=== PATIENT | male | born 1945 | race Caucasian/White ===

== ENCOUNTER 2018-04-30 21:30 | Emergency (ER) | payer MEDICARE ==
[2018-04-30] MEDS ORDERED: NS 0.9% 1000 ML* 1,000 ML IV ONE (21:51)
[2018-04-30] MEDS ORDERED: Ondansetron INJ* 2 MG/ML VIAL IV ONE (21:52)
[2018-04-30] MEDS ORDERED: Aspirin 81 mg CHEW TAB* 81 MG TAB.CHEW PO ONE (21:52)
[2018-04-30] MEDS ORDERED: Meclizine TAB* 12.5 MG PO ONE (22:00)
[2018-04-30] MEDS ORDERED: diPHENhydraMINE IV* 50 MG/ML 1 ml VIAL (BENADRYL) IV ONE (22:00)
--- NOTE | 2018-04-30 22:05 | ED ---
Dizziness - HPI Summary HPI Summary: This is Souleymane richter documenting for attending physician Luis Ferraro MD. This patient is a 72 year old M BIBA to [facility] accompanied by his with a chief complaint of dizziness since 2099. Pt states he laid down and became dizzy. He describes it as the room spinning and that it was spinning clockwise. The patient rates the pain 0/10 in severity. Symptoms aggravated by change in position. Symptoms alleviated by closing his eyes and staying still. Patient reports ABD pain, mild CP, n/v, and diaphoresis. Patient denies recent head injury. Pt is from out of town and has extensive cardiac history. - History Of Current Complaint Chief Complaint: EDDizziness Stated Complaint: VOMITING/DIZZY Time Seen by Provider: 04/30/18 21:50 Hx Obtained From: Patient Onset/Duration: Still Present Timing: Constant Severity Initially: Severe Severity Currently: Severe Character: Room Spinning, Dizzy Aggravating Factor(s): Position Change Alleviating Factor(s): Lying Down, Closing Eyes Associated Signs And Symptoms: Positive: Negative - head injury, Other: - ABD pain, mild CP, n/v, and diaphoresis - Allergies/Home Medications Allergies/Adverse Reactions: Allergies Allergy/AdvReac Type Severity Reaction Status Date / Time latex AdvReac Hives Verified 04/30/18 22:01 Home Medications: Home Medications Acetaminophen TAB* [Tylenol TAB*] 650 mg PO Q4H PRN 04/30/18 [History Confirmed 04/30/18] Aspirin [Aspirin EC] 81 mg PO DAILY 04/30/18 [History Confirmed 04/30/18] Cyproheptadine TAB* [Periactin TAB*] 4 mg PO DAILY PRN 04/30/18 [History Confirmed 04/30/18] Furosemide TAB* [Lasix TAB*] 40 mg PO DAILY 04/30/18 [History Confirmed 04/30/18 ] Losartan Potassium 12.5 mg PO DAILY 04/30/18 [History Confirmed 04/30/18] Metoprolol Succinate 25 mg PO BID 04/30/18 [History Confirmed 04/30/18] Multivit-Min/FA/Lycopen/Lutein [Centrum Silver Men Tablet] 1 each PO DAILY 04/30 [History Confirmed 04/30/18] Omeprazole CAP* [Prilosec CAP* 20 MG] 20 mg PO DAILY 04/30/18 [History Confirmed 04/30/18] Oxybutynin TAB* [Ditropan TAB*] 5 mg PO DAILY 04/30/18 [History Confirmed ] Polyethylene Glycol 3350* [Miralax*] 17 gm PO DAILY PRN 04/30/18 [History Confirmed 04/30/18] Sertraline* [Zoloft*] 50 mg PO DAILY 04/30/18 [History Confirmed 04/30/18] Spironolactone TAB* [Aldactone TAB 25 MG*] 12.5 mg PO DAILY 04/30/18 [History Confirmed 04/30/18] Tamsulosin CAP* [Flomax CAP*] 0.4 mg PO DAILY 04/30/18 [History Confirmed ] Warfarin TAB(*) [Coumadin TAB(*)] 5 mg PO SEE INSTRUCTIONS 04/30/18 [History Confirmed 04/30/18] PMH/Surg Hx/FS Hx/Imm Hx Cardiovascular History: Reports: Hx Atrial Fibrillation, Hx Congestive Heart Failure, Other Cardiovascular Problems/Disorders - pacer Respiratory History: Denies: Hx Chronic Bronchitis, Hx Chronic Obstructive Pulmonary Disease (COPD ) Infectious Disease History: No Infectious Disease History: Denies: Traveled Outside the [place] in Last 30 Days - Family History Known Family History: Positive: Cardiac Disease - Social History Alcohol Use: Rare Substance Use Type: Reports: None Smoking Status (MU): Never Smoked Tobacco Review of Systems Positive: Skin Diaphoresis Positive: Chest Pain Positive: Abdominal Pain, Vomiting, Nausea Musculoskeletal: Negative - recent head injury Neurological: Other - dizziness All Other Systems Reviewed And Are Negative: Yes Physical Exam - Summary Physical Exam Summary: Appearance: Well appearing, no pain distress Skin: warm, dry, reflects adequate perfusion, there is a sternotomy scar. There is also a scar on the left ankle. Head/face: normal Eyes: EOMI, GUDELIA ENT: normal Neck: supple, non-tender Respiratory: CTA, breath sounds present Cardiovascular: RRR, pulses symmetrical Abdomen: non-tender, soft Bowel Sounds: present Musculoskeletal: normal, strength/ROM intact Neuro: sensory motor intact, A&Ox3. Change in position induces nystagmus and nausea, positive hallpike test GCS: 15 Triage Information Reviewed: Yes Vital Signs On Initial Exam: Initial Vitals Temp Pulse Resp BP Pulse Ox 97.1 F 65 18 161/62 100 04/30/18 21:34 04/30/18 21:34 04/30/18 21:34 04/30/18 21:34 04/30/18 21:34 Vital Signs Reviewed: Yes Diagnostics - Vital Signs Vital Signs Temp Pulse Resp BP Pulse Ox 04/30/18 21:34 97.1 F 65 18 161/62 100 - Laboratory Result Diagrams: 04/30/18 22:07 04/30/18 23:20 Lab Statement: Any lab studies that have been ordered have been reviewed, and results considered in the medical decision making process. - Radiology CXR Radiology Interpretation Completed By: ED Physician - no acute findings, pending official report. - CT CT Brain CT Interpretation Completed By: Radiologist - No acute findings. Dr. Ferraro has reviewed this report. - EKG 2141 Cardiac Rate: Other Rate EKG Rhythm: Sinus Rhythm - ventriculary paced at 64 BPM EKG Interpretation: wide complex, possible st elevations in v2/v3, no st depressions EKG Comparison: Other - No Prior to compare to Re-Evaluation - Re-Evaluation First Eval Re-Evaluation Time: 23:38 Change: Improved Comment: Pt is feeling better, dizziness has resolved. Dizzy Course/Dx - Course Course Of Treatment: Patient with abrupt onset of rotational dizziness with change of position. No recent URI symptoms. Vomiting associated with this. CT of the brain, laboratories are likely at baseline. Patient does have a history of chronic renal insufficiency. He does have a extensive cardiac history but nothing today points to a cardiac etiology. He is neurologically intact. Following treatment he is able to get up, change positions and walk without issue. He is discharged to follow up with his primary care physician on return to [place]. He is also given care connections follow-up here in case he needs something further while still in the area. - Diagnoses Differential Diagnosis/HQI/PQRI: Other - Stroke, TIA, labyrinthitis, hypovolemia , cardiac event, vertigo, intracranial hemorrhage Provider Diagnoses: BPPV (benign paroxysmal positional vertigo) Discharge - Sign-Out/Discharge Documenting (check all that apply): Patient Departure - Discharge Plan Condition: Improved Disposition: HOME Prescriptions: Meclizine HCl [Dramamine Less Drowsy] 25 mg PO TID PRN #30 tablet PRN Reason: Dizziness Patient Education Materials: Vertigo (ED) Referrals: [facility] [Outside] Additional Instructions: [facility] can provide follow-up for U while you're here in town. Follow up with her family doctor promptly and return to [place]. Drink lots of fluids. Watch the video online for Eply maneuvers. These can resolve symptoms of vertigo. Do not drive until you're well. Return if worse, severe headache, numbness/weakness, worse or other concerns as discussed. - Billing Disposition and Condition Condition: IMPROVED Disposition: Home Attestation Statement Scribe Attestation: This is Souleymane richter documenting for attending physician Luis Ferraro MD. User Type: Provider with [employer] Provider Attestation: The documentation recorded by the scribe accurately reflects the service I personally performed and the decisions made by me.
[2018-04-30 22:15] LABS: ABS Basophils 0.1 10^3/ul (0-0.2); ABS Eosinophils 0.1 10^3/ul (0-0.6); ABS Lymphocytes 1.9 10^3/ul (1.0-4.8); ABS Monocytes 0.9 10^3/ul (0-0.8); ABS Neutrophils 6.8 10^3/ul (1.5-7.7); ABS Nucleated RBC 0 10^3/ul; Eosinophil % 1.2 % (0-6); Hematocrit 44 % (42-52); Hemoglobin 15.1 g/dl (14.0-18.0); Mean Corpuscular HGB Conc 35 g/dl (31-36); Mean Corpuscular Hemoglobin 33 pg (27-31); Mean Corpuscular Volume 94 fL (80-94); Mean Platelet Volume 7.2 um3 (7.4-10.4); Nucleated Red Blood Cells % 0; Platelet Count 209 10^3/ul (150-450); Red Blood Count 4.64 10^6/ul (4.00-5.40); Red Cell Distribution Width 16 % (10.5-15); White Blood Count 9.7 10^3/ul (3.5-10.8)
[2018-04-30 22:20] LABS: INR 2.65 (0.77-1.02)
[2018-04-30 22:32] LABS: EGFR Non-African American 52.7 (>60)
--- NOTE | 2018-04-30 23:08 | RAD ---
EXAM: CT Head Without Intravenous Contrast CLINICAL HISTORY: 72 years old, male; Signs and symptoms; Dizziness; Additional info: Vertigo TECHNIQUE: Axial computed tomography images of the head/brain without intravenous contrast. COMPARISON: No relevant prior studies available. FINDINGS: Artifacts: Study is slightly degraded by motion artifact. Brain: No evidence of acute intracranial hemorrhage. No intracranial mass or mass effect. The morel matter is intact. Mild areas of diminished density in the subcortical and periventricular white matter consistent with a microvascular leukoencephalopathy. Ventricles: Unremarkable. No ventriculomegaly. Bones/joints: Unremarkable. No acute fracture. Soft tissues: Unremarkable. Sinuses: Unremarkable as visualized. No acute sinusitis. Mastoid air cells: Unremarkable as visualized. No mastoid effusion. IMPRESSION: No acute findings. R0
[2018-05-01 00:39] VITALS: BP 127/61
--- NOTE | 2018-05-01 07:23 | RAD ---
INDICATION: Chest pain. COMPARISON: There are no relevant prior studies available for comparison. TECHNIQUE: A portable view of the chest was obtained. The right costophrenic angle is cut off on the film limiting the study. FINDINGS: The heart appears within normal limits in size for this portable exam. The patient is status post sternotomy. There is a multilead transvenous pacemaker present. The lungs are clear. No pleural effusion is seen. IMPRESSION: POSTSURGICAL CHANGES, NO EVIDENCE FOR ACUTE FINDING. R0
== END 2018-05-01 00:39 | disposition home or self-care (01) ==
LOC: ED 21:30
DX: H81.10 Benign paroxysmal vertigo, unspecified ear (principal); R07.89 Other chest pain; R61 Generalized hyperhidrosis; I48.91 Unspecified atrial fibrillation; Z79.01 Long term (current) use of anticoagulants; Z95.810 Presence of automatic (implantable) cardiac defibrillator; Z91.040 Latex allergy status
CPT/HCPCS: 36415; 70450; 71045; 80053; 82550; 83605; 83880; 84484; 85025; 85610; 93005; 96361; 96374; 99284; A9270-GY; J1200; J2405